=== PATIENT | male | born 1990 | race Two or more races ===

== ENCOUNTER 2025-03-30 11:41 | Emergency (ER) | payer OTHER ==
[~2025-03-30 11:41] MED LIST: CYCL5TAB PO; NAPR-1009 PO
== END 2025-03-30 12:02 | disposition left against medical advice (07) ==
LOC: ER 11:41
DX: Z00.00 Encounter for general adult medical examination without abnormal findings (principal); Z53.21 Procedure and treatment not carried out due to patient leaving prior to being seen by health care provider

== ENCOUNTER 2025-07-30 20:40 | Emergency (ER) | payer OTHER ==
[~2025-07-30] VITALS: Ht 175.3 cm; Wt 83.9 kg
[2025-07-30] MEDS ORDERED: CETI-90 PO (21:33)
[2025-07-30] MEDS ORDERED: cetrizine 10 MG TABLET ONE (21:35)
[2025-07-30] MEDS: cetrizine 10 MG TABLET PO ONE (21:41)
[2025-07-30 21:58] VITALS: BP 124/86; TEMP 98.6; O2SAT 98
== END 2025-07-30 22:04 | disposition home or self-care (01) ==
LOC: ER 20:42
DX: T78.19XA Other adverse food reactions, not elsewhere classified, initial encounter (principal); X58.XXXA Exposure to other specified factors, initial encounter
CPT/HCPCS: 99283; Q0163